=== PATIENT | female | born 1960 | race African-American/Black ===

== ENCOUNTER 2024-11-08 18:10 | Observation (INO) ==
[2024-11-08 18:50] LABS: Basophils%(Percent) Auto 0.2 (0.1-0.85); Eosinophils#(Absolute)Auto 0.1 (0.0-0.2); Eosinophils%(Percent) Auto 1.2 % (0.4-2.8); Granulocytes % - Auto 45.2 % (47.8-71.3); Granulocytes#(Absolute)- Auto 2.8 (2.3-6.0); Hematocrit 39.8 % (35.9-46.7); Mean Corpuscular Volume 90.3 fl (81.0-93.7); Monocytes #(Absolute)- Auto 0.5 (1.1-3.1); Monocytes %(Percent)- Auto 8.9 % (3.6-9.8); Platelet Count 215 K/uL (152-353); White Blood Count 6.1 K/uL (4.3-9.3)
[2024-11-08 18:59] LABS: Potassium 4.2 mmol/L (3.6-5.2)
[2024-11-08] MEDS: ASPIRIN 81 MG TAB.CHEW PO ONE (19:39)
[2024-11-08] MEDS: NITROGLYCERIN 1 GM OINT...G. TD ONE (19:39)
--- NOTE | 2024-11-08 19:44 | Emergency Department Note ---
HPI - Chest Pain General Chief Complaint: Chest Pain Stated Complaint: CHEST PAIN Time Seen by Provider: 11/08/24 19:32 Source: friend Mode of arrival: walk-in Limitations: no limitations History of Present Illness HPI narrative: This is a 63 year old female patient that presents to the ER with c/o substernal chest pain today. Patient denies any SOB, back pain, fever, chills, numbness, tingling, weakness or N/V/D MD complaint: Reports chest pain Onset (ago): hour(s) (4) Timing of current episode: Reports constant Onset: Reports during rest Pain location: Reports substernal Pain radiation: Reports none Severity: mild Quality: Reports tightness Relieving factors: Reports nothing Exacerbating factors: Reports nothing Treatment prior to arrival: Reports none Risk Factors Coronary artery disease risk factors: Reports none Thoracic aortic dissection risk factors: Reports none Pulmonary embolism risk factors: Reports none Related Data Allergies Allergy/AdvReac Type Severity Reaction Status Date / Time No Known Drug Allergies Allergy Verified 11/08/24 18:26 Review of Systems Status of ROS 10 or more systems reviewed and unremark able except as noted in history and below Constitutional Denies: fever, chills, change in weight, fatigue, malaise or night sweats Eyes Denies: change in vision, blurry vision, blind spots, light sensitivity or eye discomfort Ears, nose, mouth, and throat Denies: throat pain, neck pain, throat swelling, difficulty swallowing, hoarseness or mouth pain Cardiovascular Reports: chest pain; Denies: palpitations, edema, swelling of feet/ankles, lightheadedness or shortness of breath with exertion Respiratory Denies: shortness of breath, cough, wheezing, stridor, pain on inspiration or change in phlegm color Gastrointestinal Denies: abdominal pain, nausea, vomiting, coffee grounds in vomit, heartburn, diarrhea or constipation Genitourinary Denies: painful urination, urinary frequency, urinary urgency, urinary incontinence, blood in urine or difficulty voiding Musculoskeletal Denies: back pain, neck pain, extremity pain, extremity swellin g, joint pain or limited range of motion Integumentary/Breast Denies: rash, itching, redness, skin pain, skin tenderness or skin swelling Neurological Denies: headache, numbness in extremities, weakness in extremities or lack of coordination Psychiatric Denies: anxiety, mood swings, panic attacks, change in sleep pattern, hopelessness or loss of interest Endocrine Denies: excessive urination, excessive thirst, fatigue or cold intolerance Hematologic/Lymphatic Denies: easy bruising, easy bleeding or enlarged lymph nodes Allergic/Immunologic Denies: hives, throat swelling, tongue swelling, facial swelling or wheezing Exam Constitutional: normal general appearance and no apparent distress Vital Signs - 24 hr 11/08/24 18:24 Temperature 98.5 F Pulse Rate 64 Respiratory Rate 23 Blood Pressure 142/70 Pulse Oximetry 99 Oxygen Delivery Me thod Room Air HENMT: normocephalic, head/scalp atraumatic, hearing grossly normal bilaterally, external ears normal, nasal mucous membranes normal, external nose normal, oral mucous membranes normal and oropharynx normal Eyes: PERRL, EOMs intact bilaterally, conjunctivae normal and no scleral icterus Neck/C-Spine: visual inspection normal and trachea midline Lymph: no lymphadenopathy noted and no lymphedema noted Chest: inspection of chest normal Respiratory: breath sounds equal bilaterally, normal respiratory effort, clear to auscultation bilaterally, no wheezes, no rales, no retractions, no use of accessory muscles and chest percussion normal Cardiovascular: normal heart rate noted, regular rhythm noted, no gallop, no rub, no murmur, no JVD, no clicks, peripheral pulses 2+ throughout and no additional abnormal heart sounds Gastrointestinal: abdomen normal to inspection, abdomen soft to palpation, nontender to palpation, nontender to percussion, nondistended, normoactive bowel sounds, no hepatosplenomegaly, no masses, no pulsatile mass, no ascites and no hernia Genitourinary: no CVA tenderness Back/Pelvis: spine normal to inspection Extremities: normal to inspection, normal to palpation, no tenderness, full ROM, no joint enlargement and no deformity 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, no movement abnormality noted, no focal motor deficit noted, no sensory deficits noted, speech normal, coordination normal, no pronator drift noted, no fasciculations noted and GCS normal Psychiatry: mental status grossly normal, oriented x3, thought process normal, cooperative and affect normal Skin: skin color normal Course Course Hospital Course: 1951: Due to patient risk factors, hx and ongoing chest pain, will admit patient to the hospital, VSS, no s/s of acute distress noted Vital Signs Vital signs: Vital Signs Temperature 98.5 F 11/08/24 18:24 Pulse Rate 64 11/08/24 18:24 Respiratory Rate 23 11/08/24 18:24 Blood Pressure 142/70 11/08/24 18:24 Pulse Oximetry 99 11/08/24 18:24 Oxygen Delivery Method Room Air 11/08/24 18:24 Temperature 98.5 F 11/08/24 18:24 Pulse Rate 64 11/08/24 18:24 Respiratory Rate 23 11/08/24 18:24 Blood Pressure 142/70 11/08/24 18:24 Pulse Oximetry 99 11/08/24 18:24 Oxygen Delivery Method Room Air 11/08/24 18:24 MDM - Chest Pain Differential Diagnosis Differential diagnosis: Likely stable angina Medical Records Data Attestation: I reviewed the patient's medical records. Lab Data Attestation: I reviewed the patient's lab results. Labs: Lab Results 11/08/24 Range/Units 18:30 WBC 6.1 (4.3-9.3) K/uL RBC 4.4 (4.00-5.50) M/uL Hgb 13.2 (12.5-15.8) gm/dL Hct 39.8 (35.9-46.7) % MCV 90.3 (81.0-93.7) fl MCH 29.9 (27.6-32.2) pg MCHC 33.1 (33.1-35.3) g/dl RDW 14.8 H (11.4-14.2) % Plt Count 215 (152-353) K/uL MPV 9.0 (6.9-10.8) fl Gran % 45.2 L (47.8-71.3) % Lymph % (Auto) 44.5 H (20.0-43.0) % [place] % (Auto) 8.9 (3.6-9.8) % Eos % (Auto) 1.2 (0.4-2.8) % Baso % (Auto) 0.2 (0.1-0.85) Lymph # (Auto) 2.7 (1.1-3.1) [place] # (Auto) 0.5 L (1.1-3.1) Eos # (Auto) 0.1 (0.0-0.2) Baso # (Auto) 0.0 (0.0-0.1) Absolute Gran (auto) 2.8 (2.3-6.0) Sodium 138 (136-145) mmol/L Potassium 4.2 (3.6-5.2) mmol/L Chloride 102.0 (98-107) mmol/L Carbon Dioxide 34 H (21-32) mmol/L Anion Gap 2.0 L (4-14) mEq/L BUN 13 (7-18) mg/dL Creatinine 0.9 (0.6-1.3) mg/dL Estimated GFR 72.3 (>59.9) Glucose 105 (70-110) mg/dL Calcium 9.6 (8.5-10.1) mg/dL Troponin I High Sens 4.30 (4.0-60.4) ng/L Imaging Data Imaging ordered: Chest x-ray Attestation: I have reviewed the pertinent imaging results. ECG Data Attestation: I have reviewed the pertinent ECG results. Discharge Plan Discharge Patient Disposition: Admitted As Observation Condition: Stable Chief Complaint: Chest Pain Clinical Impression: Chest pain Print Language: Japanese Referrals: Reji York NP [Primary Care Provider] - Time of Disposition: 19:54 [facility] Medical History (Updated 11/08/24 @ 18:29 by Mary Cunha RN) Patient denies medical problems Surgical History (Updated 11/08/24 @ 18:29 by Mary Cunha RN) No history of previous surgery Social History Smoking status: never smoker
[2024-11-08] MEDS ORDERED: MORPHINE SULFATE 2 MG/ML CARTRIDGE IV PRN (23:35)
[2024-11-09] MEDS: NITROGLYCERIN 1 GM OINT...G. TD SCH (01:19)
[2024-11-09] MEDS: ACETAMINOPHEN 325 MG TABLET PO PRN (02:35)
[2024-11-09 05:32] LABS: Basophils%(Percent) Auto 0.2 (0.1-0.85); Eosinophils#(Absolute)Auto 0.1 (0.0-0.2); Eosinophils%(Percent) Auto 1.2 % (0.4-2.8); Granulocytes % - Auto 40.3 % (47.8-71.3); Granulocytes#(Absolute)- Auto 2.7 (2.3-6.0); Hematocrit 37.2 % (35.9-46.7); Mean Corpuscular Volume 89.5 fl (81.0-93.7); Monocytes #(Absolute)- Auto 0.5 (1.1-3.1); Monocytes %(Percent)- Auto 8.2 % (3.6-9.8); Platelet Count 198 K/uL (152-353); White Blood Count 6.7 K/uL (4.3-9.3)
[2024-11-09 07:55] LABS: INR 0.97
[2024-11-09] MEDS: ASPIRIN 81 MG TAB.CHEW PO SCH (09:18)
[2024-11-09] MEDS: FAMOTIDINE 20 MG TABLET PO SCH (13:05)
[2024-11-09] MEDS: GI COCKTAIL 30 ML SOLUTION PO PRN (13:05)
[2024-11-09] MEDS ORDERED: MAGNESIUM, ALUMINUM HYDROXIDE 30 ML ORAL.SUSP PO PRN (14:21)
--- NOTE | 2024-11-09 14:21 | Internal Medicine H&P ---
Internal Medicine - H&P: HPI History of Present Illness Chief complaint: CHEST PAIN Narrative: Pt to ER from home with distal, substernal CP that radiates to her back. She also reports LEFT-sided low back pain with radiation down the back of her leg. No jaw/shoulder/arm/neck pain, N/V, dyspnea, vision changes, or BOX. No saddle anesthesia, leg weakness, bowel/bladder changes, or rash. ER work-up benign. Still reports CP with stabbing to back today, but back pain is resolved. Vitals and tele have been benign other than sinus bradycardia. Review of Systems Status of ROS 10 or more systems reviewed and unremark able except as noted in history and below Constitutional Denies: fever, chills, change in weight, fatigue, malaise or night sweats Eyes Denies: change in vision, blurry vision, blind spots, light sensitivity or eye discomfort Ears, nose, mouth, and throat Denies: throat pain, neck pain, throat swelling, difficulty swallowing, hoarseness or mouth pain Cardiovascular Reports: chest pain; Denies: palpitations, edema, swelling of feet/ankles, lightheadedness or shortness of breath with exertion Respiratory Denies: shortness of breath, cough, wheezing, stridor, pain on inspiration or change in phlegm color Gastrointestinal Denies: abdominal pain, nausea, vomiting, coffee grounds in vomit, heartburn, diarrhea, constipation or difficulty swallowing Genitourinary Denies: painful urination, urinary frequency, urinary urgency, urinary incontinence, blood in urine or difficulty voiding Musculoskeletal Denies: back pain, neck pain, extremity pain, extremity swelling, joint pain or limited range of motion Integumentary/Breast Denies: rash, itching, redness, skin pain, skin tenderness or skin swelling Neurological Denies: headache, numbness in extremities, weakness in extremities or lack of coordination Psychiatric Denies: anxiety, mood swings, panic attacks, change in sleep pattern, hopelessness or loss of interest Endocrine Denies: excessive urination, excessive thirst, fatigue or cold intolerance Hematologic/Lymphatic Denies: easy bruising, easy bleeding or enlarged lymph nodes Allergic/Immunologic Denies: hives, throat swelling, tongue swelling, facial swelling or wheezing [facility] Medical History (Updated 11/10/24 @ 08:53 by Maik Quick MD) Patient denies medical problems Surgical History (Updated 11/08/24 @ 18:29 by Mary Cunha RN) No history of previous surgery Social History Smoking status: never smoker Problems where you live: no known problems Highest level of school completed/degree received: never attended Gender Identity: female Meds Home Medications and Allergies Allergies Allergy/AdvReac Type Severity Reaction Status Date / Time No Known Drug Allergies Allergy Verified 11/08/24 18:26 Exam Constitutional: normal general appearance, no apparent distress, average body habitus, no limitations and alert Vital Signs - 24 hr 11/08/24 18:24 11/08/24 19:00 11/08/24 19:00 Temperature 98.5 F Pulse Rate 64 60 Pulse Rate [Left B rachial] Respiratory Rate 23 17 Blood Pressure 142/70 138/66 Blood Pressure [Le ft Arm] Pulse Oximetry 99 97 97 Oxygen Delivery Me thod Room Air Room Air Room Air 11/08/24 19:30 11/08/24 20:00 11/08/24 20:30 Temperature Pulse Rate 60 60 60 Pulse Rate [Left B rachial] Respiratory Rate 12 19 12 Blood Pressure 122/86 121/77 162/81 Blood Pressure [Le ft Arm] Pulse Oximetry 97 97 98 Oxygen Delivery Me thod 11/08/24 21:00 11/08/24 22:00 11/08/24 23:00 Temperature Pulse Rate 60 57 L 54 L Pulse Rate [Left B rachial] Respiratory Rate 15 17 17 Blood Pressure 121/82 133/82 131/79 Blood Pressure [Le ft Arm] Pulse Oximetry 98 98 100 Oxygen Delivery Me thod Room Air Room Air 11/08/24 23:30 11/08/24 23:35 11/08/24 23:36 Temperature 97.6 F 97.6 F Pulse Rate 54 L Pulse Rate [Left B rachial] 53 L 53 L Respiratory Rate 16 18 18 Blood Pressure 123/74 Blood Pressure [Le ft Arm] 117/72 117/72 Pulse Oximetry 100 97 97 Oxygen Delivery Me thod Room Air Room Air Room Air 11/08/24 23:36 11/08/24 23:39 11/09/24 02:22 Temperature 98.5 F Pulse Rate 54 L Pulse Rate [Left B rachial] Respiratory Rate 16 Blood Pressure 123/74 117/72 Blood Pressure [Le ft Arm] Pulse Oximetry 100 Oxygen Delivery Me thod Room Air 11/09/24 04:00 11/09/24 05:56 11/09/24 08:00 Temperature 97.4 F L 96.7 F L Pulse Rate Pulse Rate [Left B rachial] 52 L 57 L Respiratory Rate 18 19 Blood Pressure 140/72 Blood Pressure [Le ft Arm] 140/70 138/59 Pulse Oximetry 100 97 Oxygen Delivery Nh thod Room Air Room Air 11/09/24 12:00 Temperature 98.6 F Pulse Rate Pulse Rate [Left B rachial] 56 L Respiratory Rate 19 Blood Pressure Blood Pressure [Le ft Arm] 114/87 Pulse Oximetry 97 [facility] HEN[facility]: normocephalic, head/scalp atraumatic, hearing grossly normal bilaterally and external ears normal Eyes: PERRL, EOMs intact bilaterally and conjunctivae normal Neck/C-Spine: visual inspection normal and trachea midline Chest: inspection of chest normal, palpation of chest normal and inspection of breasts normal nurse in room Respiratory: breath sounds equal bilaterally, normal respiratory effort, clear to auscultation bilaterally and no wheezes Cardiovascular: normal heart rate noted, regular rhythm noted, no gallop, no rub, no murmur, no JVD and peripheral pulses 2+ throughout Gastrointestinal: abdomen normal to inspection, abdomen soft to palpation and nontender to palpation Genitourinary: no CVA tenderness Back/Pelvis: spine normal to inspection, no thoracic spine tenderness, no lumbar spine tenderness, thoracic spine ROM normal, lumbar spine ROM normal and straight leg raise abnormal (positive LEFT) Extremities: normal to inspection, normal to palpation, no tenderness and full ROM 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, no focal motor deficit noted, speech normal and no fasciculations noted Psychiatry: mental status grossly normal, oriented x3, thought process normal, cooperative, affect normal, psychomotor activity normal and memory normal Internal Medicine - H&P: Reslt Labs Labs: CBC WBC 6.7 K/uL (4.3-9.3) 11/09/24 05:30 RBC 4.2 M/uL (4.00-5.50) 11/09/24 05:30 Hgb 12.6 gm/dL (12.5-15.8) 11/09/24 05:30 Hct 37.2 % (35.9-46.7) 11/09/24 05:30 MCV 89.5 fl (81.0-93.7) 11/09/24 05:30 MCH 30.3 pg (27.6-32.2) 11/09/24 05:30 MCHC 33.9 g/dl (33.1-35.3) 11/09/24 05:30 RDW 14.4 % (11.4-14.2) H 11/09/24 05:30 Plt Count 198 K/uL (152-353) 11/09/24 05:30 MPV 8.5 fl (6.9-10.8) 11/09/24 05:30 Gran % 40.3 % (47.8-71.3) L 11/09/24 05:30 Lymph % (Auto) 50.1 % (20.0-43.0) H 11/09/24 05:30 [place] % (Auto) 8.2 % (3.6-9.8) 11/09/24 05:30 Eos % (Auto) 1.2 % (0.4-2.8) 11/09/24 05:30 Baso % (Auto) 0.2 (0.1-0.85) 11/09/24 05:30 Lymph # (Auto) 3.3 (1.1-3.1) H 11/09/24 05:30 [place] # (Auto) 0.5 (1.1-3.1) L 11/09/24 05:30 Eos # (Auto) 0.1 (0.0-0.2) 11/09/24 05:30 Baso # (Auto) 0.0 (0.0-0.1) 11/09/24 05:30 Absolute Gran (auto) 2.7 (2.3-6.0) 11/09/24 05:30 BMP Sodium 135 mmol/L (136-145) L 11/09/24 05:30 Potassium 5.0 mmol/L (3.6-5.2) 11/09/24 05:30 Chloride 100.0 mmol/L (98-107) 11/09/24 05:30 Carbon Dioxide 29 mmol/L (21-32) 11/09/24 05:30 Anion Gap 6.0 mEq/L (4-14) 11/09/24 05:30 BUN 14 mg/dL (7-18) 11/09/24 05:30 Creatinine 0.8 mg/dL (0.6-1.3) 11/09/24 05:30 Estimated GFR 83.3 (>59.9) 11/09/24 05:30 Glucose 83 mg/dL (70-110) 11/09/24 05:30 Calcium 9.3 mg/dL (8.5-10.1) 11/09/24 05:30 Cardiac Enzymes Troponin I High Sens 5.40 ng/L (4.0-60.4) 11/09/24 05:59 Assessment and Plan Assessment and Plan (1) Atypical chest pain: Assessment and Plan: Suspect esophageal dysmotility vs GERD. Slight concern for cardiac, but benign so far. Code(s): R07.89 - Other chest pain (2) Lumbago with sciatica, left side: Assessment and Plan: resolved. outpt work-up. Qualifiers: Chronicity: chronic Back pain laterality: left Qualified Code(s): M54.42 - Lumbago with sciatica, left side; G89.29 - Other chronic pain Code(s): M54.42 - Lumbago with sciatica, left side
[2024-11-09] MEDS: PANTOPRAZOLE SODIUM 40 MG TABLET.DR PO SCH (20:58)
[2024-11-10 07:33] VITALS: BP 131/59; PULSE 57; RESP 19; TEMP 98.4
[2024-11-10] MEDS: FAMOTIDINE 20 MG TABLET PO SCH (08:04)
--- NOTE | 2024-11-10 08:59 | Internal Medicine Prog Note ---
Progress Note: A&P Assessment and Plan (1) Atypical chest pain: Assessment and Plan: Suspect esophageal dysmotility vs GERD. Continue Protonix/Pepcid. (2) Lumbago with sciatica, left side: Assessment and Plan: Start gabapentin 200 TID. May help with above. Qualifiers: Chronicity: chronic Back pain laterality: left Qualified Code(s): M54.42 - Lumbago with sciatica, left side; G89.29 - Other chronic pain Fall Risk Details Gómez Fall Scale Risk Level: Low Fall Risk Current Medications: Current Medications Acetaminophen (Acetaminophen 325 Mg Tablet) 650 mg PO Q4H PRN PRN Reason: Headache Last Admin: 11/09/24 21:04 Dose: 650 mg Aspirin (Aspirin 81 Mg Tab.Chew) 324 mg PO DAILY [facility] Last Admin: 11/10/24 08:03 Dose: 324 mg Famotidine (Famotidine 20 Mg Tablet) 40 mg PO ONCE [facility] Last Admin: 11/10/24 08:03 Dose: 40 mg Famotidine (Famotidine 20 Mg Tablet) 40 mg PO DAILY [facility] Last Admin: 11/10/24 08:04 Dose: 40 mg Gabapentin (Gabapentin 300 Mg Capsule) 200 mg PO TID [facility] Magnesium Hydroxide (Magnesium, Aluminum Hydroxide 30 Ml Oral.Susp) 30 ml PO QID PRN PRN Reason: Heartburn Morphine Sulfate (Morphine Sulfate 2 Mg/Ml Cartridge) 2 mg IV Q4H PRN PRN Reason: Chest Pain Multi-Ingredient GI Drug (Gi Cocktail 30 Ml Solution) 30 ml PO ONCE PRN PRN Reason: Dyspepsia Last Admin: 11/09/24 13:05 Dose: 30 ml Nitroglycerin (Nitroglycerin 1 Gm Oint...G.) 1 gm TD Q6H [facility] Last Admin: 11/10/24 06:09 Dose: Not Given Pantoprazole Sodium (Pantoprazole Sodium 40 Mg Tablet.) 40 mg PO BID [facility] Last Admin: 11/10/24 08:04 Dose: 40 mg Time Spent With Patient Time: Total time spent is greater than 50% in coordination of care (as documented) at patient's floor/unit and/or counseling patient: Internal Medicine - PN: Subj Subjective Interval history: Still with CP to back. Slight return of leg/back pain. 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 Vitals stable. Exam Constitutional: normal general appearance, no apparent distress, average body habitus, no limitations and alert Vital Signs - 24 hr 11/09/24 12:00 11/09/24 16:00 11/09/24 20:00 Temperature 98.6 F 97.9 F 98.4 F Pulse Rate [Left B rachial] 56 L 54 L 58 L Respiratory Rate 19 19 18 Blood Pressure [Le ft Arm] 114/87 136/66 134/56 Pulse Oximetry 97 98 97 Oxygen Delivery Me thod Room Air Room Air Room Air Oxygen Flow Rate 11/09/24 23:35 11/10/24 00:00 11/10/24 04:00 Temperature 98.6 F 98.6 F 98.1 F Pulse Rate [Left B rachial] 52 L 52 L 68 Respiratory Rate 17 17 22 Blood Pressure [Le ft Arm] 129/62 129/62 113/78 Pulse Oximetry 98 98 97 Oxygen Delivery Me thod Room Air Room Air Nasal Cannula Oxygen Flow Rate 2 11/10/24 05:14 11/10/24 07:32 Temperature 98.4 F Pulse Rate [Left B rachial] 57 L Respiratory Rate 19 Blood Pressure [Le ft Arm] 131/59 Pulse Oximetry 96 Oxygen Delivery Me thod Nasal Cannula Nasal Cannula Oxygen Flow Rate 2 1 HENMT: normocephalic, head/scalp atraumatic and hearing grossly normal bilaterally Eyes: PERRL, EOMs intact bilaterally and conjunctivae normal Neck/C-Spine: visual inspection normal and trachea midline Chest: inspection of chest normal and palpation of chest normal Respiratory: breath sounds equal bilaterally, normal respiratory effort, clear to auscultation bilaterally, no wheezes, no rales and no retractions Cardiovascular: normal heart rate noted, regular rhythm noted, no murmur and no additional abnormal heart sounds Gastrointestinal: abdomen normal to inspection, abdomen soft to palpation, nontender to palpation, nondistended and normoactive bowel sounds Back/Pelvis: no thoracic spine tenderness, no lumbar spine tenderness, thoracic spine ROM normal and lumbar spine ROM normal Extremities: normal to inspection, normal to palpation, no tenderness and full ROM 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: 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, no movement abnormality noted and speech normal Psychiatry: mental status grossly normal, oriented x3, thought process normal, cooperative, affect normal, psychomotor activity normal and memory normal Internal Medicine - PN: Obj Da Labs Labs: Laboratory Results - last 24 hr 11/09/24 11/10/24 05:30 05:20 Sodium 135 L Potassium 5.0 Chloride 100.0 Carbon Dioxide 29 Anion Gap 6.0 BUN 14 Creatinine 0.8 Estimated GFR 83.3 Glucose 83 Calcium 9.3 Troponin I High Sens 4.30 Review of Systems Status of ROS: 10 or more systems reviewed and unremarkable except as noted in history and below Constitutional: Denies: fever, chills, change in weight, fatigue, malaise or night sweats Eyes: Denies: change in vision, blurry vision, blind spots, light sensitivity or eye discomfort Ears, nose, mouth, and throat: Denies: throat pain, neck pain, throat swelling, difficulty swallowing, hoarseness or mouth pain Cardiovascular: Reports: chest pain; Denies: palpitations, edema, swelling of feet/ankles, lightheadedness or shortness of breath with exertion Respiratory: Denies: shortness of breath, cough, wheezing, stridor, pain on inspiration or change in phlegm color Gastrointestinal: Denies: abdominal pain, nausea, vomiting, coffee grounds in vomit, heartburn, diarrhea, constipation or difficulty swallowing Genitourinary: Denies: painful urination, urinary frequency, urinary urgency, urinary incontinence, blood in urine or difficulty voiding Musculoskeletal: Denies: back pain, neck pain, extremity pain, extremity swelling, joint pain or limited range of motion Integumentary/Breast: Denies: rash, itching, redness, skin pain, skin tenderness or skin swelling Neurological: Denies: headache, numbness in extremities, weakness in extremities or lack of coordination Psychiatric: Denies: anxiety, mood swings, panic attacks, change in sleep pattern, hopelessness or loss of interest Endocrine: Denies: excessive urination, excessive thirst, fatigue or cold intolerance Hematologic/Lymphatic: Denies: easy bruising, easy bleeding or enlarged lymph nodes Allergic/Immunologic: Denies: hives, throat swelling, tongue swelling, facial swelling or wheezing
[2024-11-10 09:40] LABS: Basophils%(Percent) Auto 0.1 (0.1-0.85); Eosinophils#(Absolute)Auto 0.1 (0.0-0.2); Eosinophils%(Percent) Auto 1.6 % (0.4-2.8); Granulocytes % - Auto 35.3 % (47.8-71.3); Granulocytes#(Absolute)- Auto 1.8 (2.3-6.0); Hematocrit 37.1 % (35.9-46.7); Mean Corpuscular Volume 89.7 fl (81.0-93.7); Monocytes #(Absolute)- Auto 0.4 (1.1-3.1); Monocytes %(Percent)- Auto 7.2 % (3.6-9.8); Platelet Count 186 K/uL (152-353); White Blood Count 5.2 K/uL (4.3-9.3)
[2024-11-10 10:15] LABS: Potassium 3.8 mmol/L (3.6-5.2)
[2024-11-10] MEDS: GABAPENTIN 300 MG CAPSULE PO SCH (10:46)
[2024-11-10] MEDS: GABAPENTIN 100 MG CAPSULE PO SCH (10:48)
== END 2024-11-10 11:40 | disposition home or self-care (01) ==
LOC: MS 18:10 → ED 18:10 → MS 23:30
PROVIDERS: ADMIT Nurse Practitioner Family; ATTEND Family Medicine